=== PATIENT | male | born 1985 | race Caucasian/White ===

== ENCOUNTER 2019-04-15 02:05 | Emergency (ER) | payer SELFPAY ==
[~2019-04-15] VITALS: Ht 170.2 cm; Wt 66.2 kg
[2019-04-15 02:10] VITALS: BP 116/63
--- NOTE | 2019-04-15 02:10 | NUR ---
TO BED # 11 AMBULATORY
--- NOTE | 2019-04-15 02:15 | NUR ---
33 Y/O MALE C/O LOWER BACK PAIN S/P FALL. RATES PAIN 7/10 AND DESCRIBES IT ACHING,SORENESS. PT STATES THE LEFT SIDE OF THE BACK HURTS MORE. ON PALPATION HURT TO TOUCH. NO OBVIOUS DEFORMITY NOTED ON BACK. VSS. PT STATES IT HURTS TO WALK. STILL HAS STEADY GAIT. DENIES ANY HEAD INJURY. NO N,V. NO BLURRY VISION. NO OTC MED TAKEN. PT CMS INTACT BILAT LOWER AND UPPER EXTEREM. PEDAL PULSES PRESENT BILAT. NKA. NO PMH.
--- NOTE | 2019-04-15 02:21 | NUR ---
AT BEDSIDE TO [facility]
[2019-04-15] MEDS ORDERED: KETOROLAC 30 MG/ML VIAL IM ONE (02:25)
[2019-04-15] MEDS ORDERED: DIAZEPAM 5 MG TAB PO ONE (02:25)
--- NOTE | 2019-04-15 03:27 | NUR ---
PT TRANSFER TO VIA WHEELCHAIR.
--- NOTE | 2019-04-15 03:35 | NUR ---
PT RETURNED BACK FROM XR VIA WHEELCHAIR.
[2019-04-15 03:55] VITALS: BP 106/60
--- NOTE | 2019-04-15 03:55 | NUR ---
dcrxPatient discharged with v/s stable. Written and verbal after care instructions given and explained. Patient alert, oriented and verbalized understanding of instructions. Ambulatory with steady gait. All questions addressed prior to discharge. ID band removed. Patient advised to follow up with PMD. Rx of naprosyn, and lidoderm patch given. Patient educated on indication of medication including possible reaction and side effects. Opportunity to ask questions provided and answered.
== END 2019-04-15 03:55 | disposition home or self-care (01) ==
LOC: MED 02:05
DX: M54.5 Low back pain (principal); W01.0XXA Fall on same level from slipping, tripping and stumbling without subsequent striking against object, initial encounter; Y93.01 Activity, walking, marching and hiking; Y92.89 Other specified places as the place of occurrence of the external cause; Y99.8 Other external cause status
CPT/HCPCS: 72100; 96372; 99283; J1885